=== PATIENT | female | born 1965 | race Caucasian/White ===

== ENCOUNTER → 2017-07-02 | Outpatient (CLI) | payer OTHER | END | disposition home or self-care (01) | LOC: CFH 14:29 | PROVIDERS: ATTEND Family Medicine | DX: M50.223 Other cervical disc displacement at C6-C7 level (principal); M25.78 Osteophyte, vertebrae | CPT/HCPCS: 72141 ==

== ENCOUNTER 2018-02-05 14:40 | Observation (INO) | payer OTHER ==
[~2018-02-05] VITALS: Ht 167.6 cm; Wt 63.6 kg
[~2018-02-05 14:40] MED LIST: DEXAMETHASONE 4 MG/ML, 1ML ONE; GLYCOPYRROLATE 0.2MG/1ML, 5ML ONE; KETOROLAC 30 MG/1 ML ONE; NEOSTIGMINE 1 MG/ML, 10ML ONE; ONDANSETRON 2MG/ML, 2ML ONE; PROPOFOL 10 MG/ML, 20ML ONE; ROCURONIUM 10MG/ML,5ML ONE; SUCCINYLCHOLINE 20 MG/ML, 10ML ONE
[2018-02-05] MEDS ORDERED: SODIUM CHLORIDE 0.9% 1,000 ML IV ONE (14:47)
[2018-02-05] MEDS ORDERED: AMLO10TA2 PO (14:49)
[2018-02-05] MEDS ORDERED: LISI5TAB7 PO (14:49)
[2018-02-05] MEDS ORDERED: CEFOTETAN PMX 1GM/50ML 50 ML IV ONE (15:00)
[2018-02-05] MEDS ORDERED: SODIUM CHLORIDE FLUSH 10ML SYR IVF ONE (15:00)
[2018-02-05] MEDS ORDERED: CEFOTETAN PMX 1GM/50ML 50 ML ONE (15:02)
[2018-02-05 15:13] LABS: BASOPHILS # (AUTO) 0.05 x10^3/uL (0-0.1); BASOPHILS % (AUTO) 1 % (0-1); EOSINOPHILS # (AUTO) 0.07 x10^3/uL (0-0.4); EOSINOPHILS % (AUTO) 1 % (1-7); LYMPHOCYTES # (AUTO) 1.74 x10^3/uL (1-3.4); LYMPHOCYTES % (AUTO) 29 % (22-44); MD NO; MEAN CORPUSCULAR HEMOGLOBIN 30.5 pg (27.0-34.8); MEAN CORPUSCULAR HGB CONC 34.6 g/dL (32.4-35.8); MEAN PLATELET VOLUME 7.3 fL (7.4-10.4); MONOCYTES # (AUTO) 0.41 x10^3/uL (0.2-0.8); MONOCYTES % (AUTO) 7 % (2-9); NEUTROPHILS # (AUTO) 3.66 x10^3/uL (1.8-6.8); NEUTROPHILS % (AUTO) 62 % (42-75); PLATELET COUNT 327 x10^3/uL (130-400); RED BLOOD COUNT 4.78 x10^6/uL (3.82-5.3); RED CELL DISTRIBUTION WIDTH 12.3 % (9.6-15.2)
[2018-02-05 15:22] LABS: ANION GAP 8 mmol/L (5-15); CALCIUM 8.9 mg/dL (8.5-10.1); CHLORIDE 100 mmol/L (98-107)
[2018-02-05 15:23] LABS: CREATININE 0.72 mg/dL (0.55-1.02)
[2018-02-05] MEDS ORDERED: BUPIVACAINE/PF-EPI 0.5% 1:200K ONE (15:59)
[2018-02-05] MEDS ORDERED: LABETALOL 5MG/ML, 20ML IV PRN (17:00)
[2018-02-05] MEDS ORDERED: MIDAZOLAM 1 MG/ML, 2ML IV PRN (17:00)
[2018-02-05] MEDS ORDERED: MEPERIDINE/PF 25MG/0.5ML IVPush PRN (17:00)
[2018-02-05] MEDS ORDERED: OXYcodone 5 MG/5 ML ORAL.SOL UDC PO PRN (17:00)
[2018-02-05] MEDS ORDERED: SCOPOLAMINE PATCH, 1.5MG PATCH.TD72 TD PRN (17:00)
[2018-02-05] MEDS ORDERED: HYDROmorphone 2 MG/ML, 1ML IV PRN (17:00)
[2018-02-05] MEDS ORDERED: ONDANSETRON 2MG/ML, 2ML IV PRN (17:00)
[2018-02-05] MEDS ORDERED: ALBUTEROL/IPRATROPIUM 2.5MG/0.5MG, 3 ML NPPB PRN (17:00)
[2018-02-05] MEDS ORDERED: PROMETHAZINE 25 MG/ML, 1ML IV PRN (17:00)
[2018-02-05] MEDS ORDERED: ACETAMINOPHEN 325 MG TABLET PO PRN (17:00)
[2018-02-05] MEDS ORDERED: FENTANYL PF 100 MCG/2ML ONE (17:29)
[2018-02-05] MEDS ORDERED: OXYcodone 5 MG/5 ML ORAL.SOL UDC ONE (17:29)
[2018-02-05] MEDS ORDERED: ONDANSETRON 2MG/ML, 2ML IVPush PRN (17:30)
[2018-02-05] MEDS: FENTANYL PF 100 MCG/2ML IV PRN ×3 (17:30→17:40)
[2018-02-05] MEDS ORDERED: ACETAMINOPHEN 650 MG/20.3 ML UDC PO PRN (17:30)
[2018-02-05] MEDS ORDERED: DIPHENHYDRAMINE 25 MG CAPSULE PO PRN (17:30)
[2018-02-05] MEDS ORDERED: KETOROLAC 30 MG/1 ML IV PRN (17:30)
[2018-02-05] MEDS ORDERED: MORPHINE SULFATE 4 MG/ML, 1ML IVPush PRN (17:30)
[2018-02-05] MEDS ORDERED: CEFOTETAN PMX 1GM/50ML 50 ML IVPB SCH (17:30)
[2018-02-05 18:30] VITALS: BP 124/87
[2018-02-05] MEDS ORDERED: AMLODIPINE 2.5 MG TABLET PO SCH (22:00)
[2018-02-05] MEDS: D5%-0.45% NACL 1,000 ML IV SCH (22:00)
[2018-02-05] MEDS ORDERED: LISINOPRIL 5 MG TABLET PO SCH (22:00)
[2018-02-06] VITALS: BP 111/74
[2018-02-06] MEDS: OXYcodone 5 MG/5 ML ORAL.SOL UDC PO PRN ×2 (02:13→14:35)
[2018-02-06] MEDS: CEFOTETAN PMX 1GM/50ML 50 ML IVPB SCH ×2 (02:44→14:23)
[2018-02-06 04:00] VITALS: BP 96/54
[2018-02-06 05:38] LABS: ALBUMIN 3.3 g/dL (3.4-5.0); ANION GAP 8 mmol/L (5-15); CALCIUM 8.3 mg/dL (8.5-10.1); CHLORIDE 107 mmol/L (98-107); CREATININE 1.05 mg/dL (0.55-1.02)
[2018-02-06 05:43] LABS: BASOPHILS # (AUTO) 0.03 x10^3/uL (0-0.1); BASOPHILS % (AUTO) 0 % (0-1); EOSINOPHILS % (AUTO) 0 % (1-7); LYMPHOCYTES # (AUTO) 0.75 x10^3/uL (1-3.4); LYMPHOCYTES % (AUTO) 8 % (22-44); MD NO; MEAN CORPUSCULAR HEMOGLOBIN 30.5 pg (27.0-34.8); MEAN CORPUSCULAR HGB CONC 34.1 g/dL (32.4-35.8); MEAN CORPUSCULAR VOLUME 89.6 fL (80-100); MEAN PLATELET VOLUME 7.4 fL (7.4-10.4); MONOCYTES # (AUTO) 0.34 x10^3/uL (0.2-0.8); MONOCYTES % (AUTO) 4 % (2-9); NEUTROPHILS # (AUTO) 8.66 x10^3/uL (1.8-6.8); NEUTROPHILS % (AUTO) 89 % (42-75); PLATELET COUNT 324 x10^3/uL (130-400); RED CELL DISTRIBUTION WIDTH 12.4 % (9.6-15.2)
[2018-02-06 07:43] VITALS: BP 105/66
[2018-02-06] MEDS ORDERED: SODIUM CHLORIDE 0.9% 1,000ML IVBOLUS ONE (08:30)
[2018-02-06] MEDS ORDERED: AMLODIPINE 5 MG TABLET PO SCH (09:00)
[2018-02-06] MEDS ORDERED: LISINOPRIL 5 MG TABLET PO SCH ×2 (09:00→21:00)
[2018-02-06] MEDS ORDERED: ENOXAPARIN 40 MG/0.4 ML SQ SCH (09:00)
[2018-02-06] MEDS ORDERED: ONDA4TAB7 PO (09:53)
[2018-02-06] MEDS ORDERED: OXYC-302 PO (09:53)
[2018-02-06] MEDS: D5%-0.45% NACL 1,000 ML IV SCH (11:17)
[2018-02-06 14:10] VITALS: BP 111/73
== END 2018-02-06 15:42 | disposition home or self-care (01) ==
LOC: ED 15:18 → INTOOBSV 15:30 → EDIP 15:30 → 4NOR 18:12 → DCLOUNGE 02-06 15:40
PROVIDERS: ADMIT Surgery; ATTEND Surgery
DX: K35.3 Acute appendicitis with localized peritonitis (principal); N83.202 Unspecified ovarian cyst, left side; I10 Essential (primary) hypertension
CPT/HCPCS: 36415; 44970; 80048; 82040; 85025; 88304; 93005; 96365; 96372; 96375; 96376; 99285; G0378; J0330; J1100; J1650; J1885; J2250; J2405; J2704; J2710; J3010; J3490; J7030; S0074

== ENCOUNTER → 2018-04-09 | Outpatient (CLI) | payer OTHER ==
[~2018-04-09] MED LIST changes: +AMLO10TA6 PO; -DEXAMETHASONE 4 MG/ML, 1ML ONE; -GLYCOPYRROLATE 0.2MG/1ML, 5ML ONE; -KETOROLAC 30 MG/1 ML ONE; +LISI5TAB7 PO; -NEOSTIGMINE 1 MG/ML, 10ML ONE; +ONDA4TAB7 PO; -ONDANSETRON 2MG/ML, 2ML ONE; +OXYC-302 PO; -PROPOFOL 10 MG/ML, 20ML ONE; -ROCURONIUM 10MG/ML,5ML ONE; -SUCCINYLCHOLINE 20 MG/ML, 10ML ONE
== END | disposition home or self-care (01) ==
LOC: CFH 10:19
PROVIDERS: ATTEND Family Medicine
DX: N83.292 Other ovarian cyst, left side (principal); R91.1 Solitary pulmonary nodule
CPT/HCPCS: 76830

== ENCOUNTER → 2018-05-07 | Outpatient (CLI) | payer OTHER ==
[~2018-05-07] MED LIST changes: +OMNIPAQUE 350 MG/ML, 75ML BOTTLE ONE
== END | disposition home or self-care (01) ==
LOC: CFH 08:36
PROVIDERS: ATTEND Family Medicine
DX: R91.8 Other nonspecific abnormal finding of lung field (principal); N83.292 Other ovarian cyst, left side
CPT/HCPCS: 71260; Q9967

== ENCOUNTER → 2018-06-26 | Outpatient (CLI) | payer OTHER | END | disposition home or self-care (01) | LOC: CFH 14:13 | PROVIDERS: ATTEND Family Medicine | DX: R91.8 Other nonspecific abnormal finding of lung field (principal) | CPT/HCPCS: 71260; Q9967 ==

== ENCOUNTER → 2018-12-18 | Outpatient (CLI) | payer OTHER ==
[~2018-12-18] MED LIST changes: -AMLO10TA6 PO; +AMLO10TA8 PO
== END | disposition home or self-care (01) ==
LOC: CFH 10:58
PROVIDERS: ATTEND Family Medicine
DX: J98.11 Atelectasis (principal); R91.8 Other nonspecific abnormal finding of lung field; K76.0 Fatty (change of) liver, not elsewhere classified
CPT/HCPCS: 71260; Q9967

== ENCOUNTER 2019-05-25 08:33 | Outpatient (CLI) | payer OTHER ==
[~2019-05-25 08:33] MED LIST changes: -OMNIPAQUE 350 MG/ML, 75ML BOTTLE ONE
== END 2019-05-25 23:59 | disposition home or self-care (01) ==
LOC: CFH 08:33
PROVIDERS: ATTEND Obstetrics & Gynecology
DX: Z12.31 Encounter for screening mammogram for malignant neoplasm of breast (principal)
CPT/HCPCS: 77063; 77067

== ENCOUNTER → 2019-12-17 | Outpatient (CLI) | payer OTHER | END | disposition home or self-care (01) | LOC: CFH 14:47 | PROVIDERS: ATTEND Family Medicine | DX: N85.8 Other specified noninflammatory disorders of uterus (principal) | CPT/HCPCS: 76830 ==

== ENCOUNTER → 2020-05-09 | Outpatient (CLI) | payer OTHER ==
[~2020-05-09] MED LIST changes: +AMLO-211 PO; -AMLO10TA8 PO; +OMNIPAQUE 350 MG/ML, 100ML BOTTLE ONE
== END | disposition home or self-care (01) ==
LOC: CFH 12:36
PROVIDERS: ATTEND Nurse Practitioner Family
DX: K76.0 Fatty (change of) liver, not elsewhere classified (principal); K80.20 Calculus of gallbladder without cholecystitis without obstruction; R14.0 Abdominal distension (gaseous)
CPT/HCPCS: 74177; Q9967

== ENCOUNTER → 2020-06-15 | Outpatient (CLI) | payer OTHER ==
[~2020-06-15] MED LIST changes: +GALC120S INJ; -OMNIPAQUE 350 MG/ML, 100ML BOTTLE ONE
[2020-06-15 12:29] LABS: MICROSCOPIC NOT IND
[2020-06-15 12:30] LABS: ALBUMIN 4.3 g/dL (3.4-5.0); ANION GAP 4 mmol/L (5-15); CALCIUM 9.2 mg/dL (8.5-10.1); CHLORIDE 106 mmol/L (98-107)
[2020-06-15 12:33] LABS: ALANINE AMINOTRANSFERASE 37 U/L (12-78); ALKALINE PHOSPHATASE 104 U/L (45-117); BILIRUBIN,TOTAL 1.6 mg/dL (0.2-1.0); CREATININE 0.85 mg/dL (0.55-1.02); TOTAL PROTEIN 8.1 g/dL (6.4-8.2)
== END | disposition home or self-care (01) ==
LOC: STAR 11:15
PROVIDERS: ATTEND Surgery
DX: Z01.812 Encounter for preprocedural laboratory examination (principal); K80.10 Calculus of gallbladder with chronic cholecystitis without obstruction; Z20.828 Contact with and (suspected) exposure to other viral communicable diseases
CPT/HCPCS: 80053; 81003; 87635

== ENCOUNTER 2020-06-21 05:46 | Day surgery (SDC) | payer OTHER ==
[~2020-06-21] VITALS: Ht 165.1 cm; Wt 68.2 kg
[2020-06-21] MEDS ORDERED: INDOCYANINE GREEN 25 MG VIAL IVPush ONE (07:00)
[2020-06-21] MEDS ORDERED: LACTATED RINGERS 1,000 ML IV SCH (07:00)
[2020-06-21] MEDS ORDERED: CHLORHEXIDINE 15 ML UDC MM ONE (07:00)
[2020-06-21 07:04] VITALS: BP 96/67
[2020-06-21] MEDS ORDERED: FENTANYL PF 100 MCG/2ML ONE ×2 (07:22→10:01)
[2020-06-21] MEDS ORDERED: MIDAZOLAM 1 MG/ML, 2ML ONE (07:23)
[2020-06-21] MEDS ORDERED: INDOCYANINE GREEN 25 MG VIAL ONE (07:28)
[2020-06-21] MEDS ORDERED: EPINEPHRINE 1 MG/ML, 1ML ONE (08:10)
[2020-06-21] MEDS ORDERED: BUPIVACAINE/PF 0.25% ONE (08:10)
[2020-06-21] MEDS ORDERED: OXYcodone 5 MG/5 ML ORAL.SOL UDC PO PRN (09:00)
[2020-06-21] MEDS ORDERED: KETOROLAC 30 MG/1 ML IVPush PRN ×2 (09:00→09:30)
[2020-06-21] MEDS ORDERED: HYDROmorphone 1 MG/ML, 1ML INJ IVPush PRN (09:00)
[2020-06-21] MEDS ORDERED: PROMETHAZINE 25 MG/ML, 1ML IVPush PRN (09:00)
[2020-06-21] MEDS ORDERED: HYDROcodone/APAP 7.5-325MG/15ML UDC PO PRN (09:00)
[2020-06-21] MEDS ORDERED: MEPERIDINE/PF 25MG/0.5ML IVPush PRN (09:00)
[2020-06-21] MEDS ORDERED: DIPHENHYDRAMINE 50 MG/ML, 1ML IVPush PRN (09:30)
[2020-06-21] MEDS ORDERED: ONDANSETRON 2MG/ML, 2ML IVPush PRN (09:30)
[2020-06-21] MEDS ORDERED: morphine SULFATE 10 MG/ML, 1ML IVPush PRN (09:30)
[2020-06-21] MEDS ORDERED: MEPERIDINE/PF 25MG/ML,1ML ONE (09:47)
[2020-06-21] MEDS ORDERED: ONDANSETRON 2MG/ML, 2ML ONE (09:47)
[2020-06-21] MEDS ORDERED: HYDROcodone/APAP 7.5-325MG/15ML UDC ONE (09:47)
[2020-06-21] MEDS ORDERED: KETOROLAC 30 MG/1 ML ONE (10:01)
[2020-06-21] MEDS: FENTANYL PF 100 MCG/2ML IV PRN ×2 (10:07→10:21)
[2020-06-21] MEDS ORDERED: ACETAMINOPHEN 650 MG/20.3 ML UDC ONE (10:15)
[2020-06-21] MEDS ORDERED: OXYcodone 5 MG/5 ML ORAL.SOL UDC ONE (10:15)
[2020-06-21] MEDS ORDERED: ACETAMINOPHEN 650 MG/20.3 ML UDC PO PRN (10:30)
== END 2020-06-21 12:10 | disposition home or self-care (01) ==
LOC: OUT 05:46
PROVIDERS: ATTEND Surgery
DX: K80.10 Calculus of gallbladder with chronic cholecystitis without obstruction (principal); I10 Essential (primary) hypertension; G43.909 Migraine, unspecified, not intractable, without status migrainosus; Z88.1 Allergy status to other antibiotic agents; Z88.2 Allergy status to sulfonamides; Z72.89 Other problems related to lifestyle; Z79.899 Other long term (current) drug therapy; Z82.49 Family history of ischemic heart disease and other diseases of the circulatory system
CPT/HCPCS: 47563; 88304; J0171; J1885; J2175; J2250; J2405; J3010; J7120; S2900

== ENCOUNTER → 2020-08-09 | Outpatient (CLI) | payer OTHER ==
[~2020-08-09] MED LIST changes: -OXYC-302 PO; +OXYC1TAB14 PO
== END | disposition home or self-care (01) ==
LOC: CFH 14:30
PROVIDERS: ATTEND Obstetrics & Gynecology
DX: Z12.31 Encounter for screening mammogram for malignant neoplasm of breast (principal)
CPT/HCPCS: 77063; 77067